=== PATIENT | male | born 1935 | race Caucasian/White ===

== ENCOUNTER 2017-12-01 19:26 | Emergency (ER) | payer SELFPAY ==
[2017-12-01] MEDS ORDERED: NS(*) 0.9% 1000 ML BAG 1,000 ML IV ONE (19:51)
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
[2017-12-01 20:19] LABS: PLATELET COUNT, AUTOMATED 97 K/uL (150-450)
--- NOTE | 2017-12-01 20:54 | EKG ---
FACILITY: [facility] - [place] PATIENT NAME: BERRY CRUZ : [id number] MR: [id number] V: [id number] EXAM DATE: ORDERING PHYSICIAN: SHARLA CHAPPELL TECHNOLOGIST: JOSE Test Reason : CODE BLUE Blood Pressure : / mmHG Vent. Rate : 064 BPM Atrial Rate : 072 BPM P-R Int : 000 ms QRS Dur : 160 ms QT Int : 512 ms P-R-T Axes : 000 -89 079 degrees QTc Int : 528 ms Wide complex probable idioventricular rhythm Diffuse ST-T changes Abnormal ECG No previous ECGs available Confirmed by NITIN MONTANEZ ([id number] on 12/02/2017 5:42:47 AM Referred By: Confirmed By:NITIN MONTANEZ
--- NOTE | 2017-12-01 21:29 | RADIOLOGY IMAGING REPORT ---
FACILITY: [facility] PATIENT NAME: Bryson Rae : 1935 MR: [id number] V: [id number] EXAM DATE: ORDERING PHYSICIAN: SHARLA CHAPPELL TECHNOLOGIST: Location: [facility] Patient: Bryson aRe : 1935 Visit/Account:[id number] Date of Sevice: 12/01/2017 SINGLE AP RADIOGRAPH OF THE CHEST 12/01/2017 7:51 PM. INDICATION: Chest Pain COMPARISON: None. FINDINGS/IMPRESSION: Examination limited by overlying material. Endotracheal tube terminates in the mid thoracic trachea. There is) left bibasilar consolidation/atelectasis. Probable small volume right pleural effusion. Cardiac silhouette may be mildly enlarged. Report Dictated By: Hai Brooks MD at 12/01/2017 9:22 PM Report E-Signed By: Hai Brooks MD at 12/01/2017 9:24 PM WSN:[id number]
--- NOTE | 2017-12-01 21:37 | RADIOLOGY IMAGING REPORT ---
FACILITY: [facility] - [place] PATIENT NAME: Bryson Rae : 1935 MR: [id number] V: [id number] EXAM DATE: ORDERING PHYSICIAN: SHARLA CHAPPELL TECHNOLOGIST: Location: [facility] [place] Patient: Bryson aRe : 1935 Visit/Account:[id number] Date of Sevice: 12/01/2017 SINGLE AP RADIOGRAPH OF THE CHEST 12/01/2017 8:22 PM. INDICATION: Cardiac arrest, tube placement, repeat of prior poor imaged. COMPARISON: Same-day radiograph. FINDINGS/IMPRESSION: Endotracheal tube again terminates in the mid thoracic trachea. Redemonstration of right greater jordon n left bibasilar consolidation/atelectasis. Right pleural effusion volume is likely moderate. No pn eumothorax. Cardiac silhouette again appears mildly enlarged. Report Dictated By: Hai Brooks MD at 12/01/2017 9:29 PM Report E-Signed By: Hai Brooks MD at 12/01/2017 9:33 PM WSN:[id number]
== END 2017-12-01 22:00 | disposition expired ==
LOC: ER 20:01
DX: I46.9 Cardiac arrest, cause unspecified (principal); I21.4 Non-ST elevation (NSTEMI) myocardial infarction; I50.9 Heart failure, unspecified
CPT/HCPCS: 71045; 82803; 83605; 83735; 83880; 84484; 85025; 85379; 85610; 85730; 87040; 93005; 94002; 99285; J0171; J0461; J2310; 82040; 82247; 82310; 82374; 82435; 82565; 82947; 84075; 84132; 84155; 84295; 84450; 84460; 84520

== ENCOUNTER → 2017-12-01 | Outpatient (CLI) | payer SELFPAY | LOC: AMB 18:53 | PROVIDERS: ATTEND Nurse Practitioner | DX: I46.9 Cardiac arrest, cause unspecified (principal) | CPT/HCPCS: A0425; A0433 ==